=== PATIENT | female | born 1960 | race Caucasian/White ===

== ENCOUNTER → 2016-10-01 | Outpatient (CLI) | payer BC, OTHER ==
[~2016-10-01] MED LIST: ACET325T96 PO; IBUP-1459 PO
--- NOTE | 2016-10-02 14:41 | MAMMOGRAPHY REPORT ---
BILATERAL DIGITAL SCREENING MAMMOGRAM TOMOSYNTHESIS WITH CAD: 10/01/2016 CLINICAL HISTORY: Routine screening. Patient has no complaints. TECHNIQUE: Breast tomosynthesis in addition to standard 2D mammography was performed. Current study was also evaluated with a Computer Aided Detection (CAD) system. COMPARISON: Comparison is made to exams dated: 09/29/2015 mammogram, 08/26/2014 mammogram, 01/20/2013 m ammogram, 02/23/2010 mammogram - [facility], 07/31/2006, and 07/31/2006. BREAST COMPOSITION: There are scattered areas of fibroglandular density in both breasts. FINDINGS: There are a few stable benign-appearing calcifications within the right breast. No suspic ious mass, architectural distortion or cluster of microcalcifications is seen. IMPRESSION: ACR BI-RADS CATEGORY 1: NEGATIVE There is no mammographic evidence of malignancy. A 1 year screening mammogram is recommended. The p atient will receive written notification of the results. Approximately 10% of breast cancers are not detected with mammography. A negative mammographic repor t should not delay biopsy if a clinically suggestive mass is present. Mony King M.D. ay/:10/01/2016 22:25:31 Irrigation Flume Layer: Maral BOTELLO(Otoneil)(M), [facility] letter sent: Normal 1/2 BI-RADS Code: ACR BI-RADS Category 1: Negative
== END | disposition home or self-care (01) ==
LOC: C.MAMM 14:01
PROVIDERS: ATTEND Obstetrics & Gynecology
DX: Z12.31 Encounter for screening mammogram for malignant neoplasm of breast (principal)

== ENCOUNTER → 2017-10-17 | Outpatient (CLI) | payer OTHER ==
[~2017-10-17] MED LIST changes: +ACET-1693 PO; -ACET325T96 PO
--- NOTE | 2017-10-20 08:09 | MAMMOGRAPHY REPORT ---
BILATERAL DIGITAL SCREENING MAMMOGRAM TOMOSYNTHESIS WITH CAD: 10/17/2017 CLINICAL HISTORY: Routine screening. Patient has no complaints. TECHNIQUE: Breast tomosynthesis in addition to standard 2D mammography was performed. Current study was also evaluated with a Computer Aided Detection (CAD) system. COMPARISON: Comparison is made to exams dated: 10/01/2016 mammogram, 09/29/2015 mammogram, 08/26/2014 adebayo mogram, 01/20/2013 mammogram, 02/23/2010 mammogram - [facility], and 07/31/2006. BREAST COMPOSITION: There are scattered areas of fibroglandular density in both breasts. FINDINGS: No suspicious masses, calcifications, or areas of architectural distortion are noted in ei ther breast. There has been no significant interval change compared to prior exams. Benign-appearing right breast calcifications are not significantly changed. IMPRESSION: ACR BI-RADS CATEGORY 2: BENIGN There is no mammographic evidence of malignancy. A 1 year screening mammogram is recommended. The pa tient will receive written notification of the results. Approximately 10% of breast cancers are not detected with mammography. A negative mammographic report should not delay biopsy if a clinically suggestive mass is present. Susana Mae M.D. /:10/17/2017 15:10:46 Dermatologist: Arelis BOTELLO(Otoniel)(M), [facility] letter sent: Normal 1/2 BI-RADS Code: ACR BI-RADS Category 2: Benign
== END | disposition home or self-care (01) ==
LOC: C.MAMM 13:33
PROVIDERS: ATTEND Obstetrics & Gynecology
DX: Z12.31 Encounter for screening mammogram for malignant neoplasm of breast (principal)

== ENCOUNTER 2025-03-03 14:14 | Inpatient (IN) ==
--- NOTE | 2025-03-03 14:22 | Emergency Department Note ---
Impression & Plan Fever, Hematuria, Tachycardia, High serum lactate, Elevated procalcitonin, Epigastric abdominal pain, Cough ED Provider Note CHIEF COMPLAINT: Cough, body aches, fatigue, fever, shortness of breath HISTORY OF PRESENTING ILLNESS: This 65-year-old female patient presents emergency department for evaluation of illness symptoms since 02/18/2025. The patient states that she has had a fever 101.9 F, cough, shortness of breath, body aches, headache, and fatigue since 02/18/2025. She states that she had multiple negative COVID and flu tests. She states that she had blood in her urine when she was seen at urgent care, but no evidence of UTI. The fever resolved for 3 days, but then returned today up to 101.5 F again. She took Tylenol at 7:00 am this morning to help with the fever. Denies chest pain. She has had the cough for the past month and initially her PCP thought it was GERD. However, it did not resolve with Pepcid. The SOB is worse with taking a deep breath. She also coughs every time she takes a deep breath. Denies nausea or vomiting. States that her stomach feels like it's on fire after eating. She denies any rashes. No known tick bites. The fever started while in [place] to help her father move from one group home to another. REVIEW OF SYSTEMS: See HPI for pertinent positives and pertinent negatives. ALLERGIES: PCN, Sulfa MEDICATIONS: See below PAST MEDICAL HISTORY: See below PHYSICAL EXAM: Vital Signs: Vitals are noted on the nurse's note and reviewed by myself. GENERAL: The patient is mildly diaphoretic and ill-appearing, but non toxic in appearance and in no acute distress. SKIN: Capillary reflex less than 2 seconds. No suspicious rashes or lesions. HEAD: Normocephalic, atraumatic. EARS: Bilateral external auditory canals clear without tragus tenderness. Bilateral tympanic membranes pearly small without erythema or effusion. No mastoid tenderness bilaterally. EYES: Pupils equal round and reactive to light and accommodation. Conjunctivae without injection, sclerae without icterus. Extraocular movements intact. NOSE: Patent, turbinates inflamed with no discharge. No sinus tenderness. MOUTH: Mucous membranes moist. Airway patent, uvula midline. Pharynx is not erythematous and not edematous with no exudate. Pharynx has no postnasal drip. No evidence for peritonsillar abscess. NECK: Supple without nuchal rigidity. No meningeal signs. No lymphadenopathy. HEART: Regular rate and rhythm without murmurs gallops or rubs. LUNGS: Lungs sounded tight with decreased air movement bilaterally. Reflux cough after every inspiration. No accessory muscle use or retractions. ABDOMEN: Positive bowel sounds x 4. Normal tympanic percussion. Soft, mild tenderness to palpation in the epigastric area. No masses or hepatosplenomegaly. No guarding, rigidity, or rebound tenderness. No CVA tenderness. No focal RLQ or LLQ tenderness. NEURO: Patient was alert and oriented. DIFFERENTIAL DIAGNOSIS: Differential diagnosis includes Influenza, RSV, COVID, viral syndrome, otitis media, otitis externa, pharyngitis, strep throat, pneumonia, meningitis, urinary tract infection, cellulitis, abscess, sepsis, bacteremia, Lyme disease, anaplasmosis, babesiosis, angina, CA, pericarditis, myocarditis, aortic dissection, pleurisy, pneumothorax, PE, pneumonia, pneumomediastinum, esophagitis, esophageal spasm, GERD, perforated esophagus, perforated duodenal/gastric ulcer, pancreatitis, cholecystitis, costochondritis, musculoskeletal, bronchitis, URI, hepatitis, pancreatitis, cholecystitis, cholelithiasis, appendicitis, kidney stone, pyelonephritis, UTI, gastritis, gastroenteritis, mesenteric adenitis, obstruction, constipation, hernia, abdominal abscess, perforation, diverticulitis, IBD, ischemic colitis, abdominal aortic aneurysm, , ectopic , ovarian cyst, ovarian torsion, acute salpingitis, or others. ED COURSE AND MEDICAL DECISION MAKING: MEDICATIONS GIVEN: A total of 2.5 L normal saline solution bolus. Tylenol 1000 mg IV. Pepcid 20 mg IV. DuoNeb treatment. Rocephin 2 g IV. Doxycycline 100 mg p.o. MONITOR: Continuous cardiac monitor technician: Order was placed for continuous cardiac monitor technician. Patient was placed on the cardiac monitor technician and continuous pulse ox. Patient was noted to be in sinus tachycardia at an initial rate of 138 bpm per my interpretation. EKG: EKG was interpreted by myself as sinus tachycardia at 123 bpm with no acute ST or T wave changes. INTERPRETATION OF LABS: I interpreted the labs with full lab results as below in the lab section of this note. Laboratory results pertinent to the emergent complaint are discussed in the MDM section below. The patient was advised to follow up with their PCP and/or specialist(s) for further outpatient monitoring and management of any abnormal results. INTERPRETATION OF IMAGING: Imaging studies were interpreted by myself and read by radiology as per the imaging section of this note. The patient was advised to follow up with their PCP and/or specialist(s) for further outpatient management of any non-emergent abnormal findings. CT scan of the head without contrast was negative for acute intracranial abnormality. CTA of the chest with IV contrast showed no evidence of PE, pneumonia, pneumothorax, or hemothorax. There is bilateral lung base atelectasis and mild emphysema. CT scan of the abdomen pelvis with IV contrast showed a suspected mild small bowel wall thickening which may be due to infectious enteritis or inflammatory bowel disease. Left ovarian cyst which is likely a benign functional cyst. CONSULTATIONS: On-call hospitalist MDM SUMMARY: I examined the patient. The patient has had a fever since 02/18/2025. She had 3 days where she was afebrile, but the fever returned again today. The patient has also had a cough for the past month that has not become reflexive. She is also having some upper epigastric abdominal pain. She has had multiple negative COVID and influenza tests as an outpatient. The patient is febrile and tachycardic on exam. She is mildly diaphoretic and ill-appearing, but nontoxic. An IV lock was placed and labs were drawn. The patient was given a total of 2.5 L normal saline solution bolus based on her actual body weight sepsis fluid calculation of 2.352 L. Blood cultures were obtained. The patient was given Rocephin 2 g IV. She was also given doxycycline 100 mg p.o. for possible atypical or tickborne cause of the fever. The patient was given Tylenol 1000 mg IV with resolution of her fever. She was given Pepcid 20 mg IV with some improvement of her epigastric abdominal pain and reflux. She was given a DuoNeb treatment with some improvement of her breathing and cough. White blood cell count normal at 6.17. Hemoglobin normal at 12.4. Platelet count normal at 387. Coags normal. Sodium slightly low at 134, glucose elevated at 131, and alk phos 135. CMP otherwise normal. Lipase normal. High- sensitivity troponin normal. The patient's initial lactate was elevated at 2.3 and improved to 1.7 after the IV fluids. Procalcitonin elevated at 0.51. Urinalysis with trace blood, but no evidence for UTI. Respiratory BioFire negative. Lyme disease screen negative. Anaplasma and Babesia smear negative with DNA PCR still pending. CT scan of the head without contrast was negative for acute intracranial abnormality. CTA of the chest with IV contrast showed no evidence of PE, pneumonia, pneumothorax, or hemothorax. There is bilateral lung base atelectasis and mild emphysema. CT scan of the abdomen pelvis with IV contrast showed a suspected mild small bowel wall thickening which may be due to infectious enteritis or inflammatory bowel disease. Left ovarian cyst which is likely a benign functional cyst. Unfortunately, the source of the patient's fever is still unknown at this time. Still waiting on Anaplasma and Babesia DNA PCR. The patient will be treated with doxycycline in addition to the IV Rocephin for possible tickborne illness as a cause of her symptoms. The patient's heart rate improved after the IV fluids, but she remained tachycardic. I had a meaningful discussion about this patient with Dr. Guthrie who agrees with my assessment and the treatment plan. The patient will be admitted for further evaluation and treatment of her symptoms. I spoke with the on-call hospitalist who agreed to admit the patient. Please refer to their dictation for further details. The patient's care was transferred in stable condition. DIAGNOSIS: Fever Tachycardia Elevated lactate and procalcitonin Epigastric abdominal pain Hematuria Cough Attending Attestation: Zuhair Guthrie MD I have reviewed the advanced practitioner's documentation and agree with the plan of care. Patient with tachycardia fevers and elevated procalcitonin. No clear source at this time. Will cover empirically with antibiotics and bring in for further observation. I accept the responsibility for the associated risk of managing the patient. I performed a substantive portion of the visit including involvement in all aspects of medical decision making. Past Med/Surg History Problem List Cough (Acute) Epigastric abdominal pain (Acute) Elevated procalcitonin (Acute) High serum lactate (Acute) Tachycardia (Acute) Hematuria (Acute) Hematuria Fever (Acute) Arthralgia Scattered fibroglandular tissue density of both breasts on mammography Plantar fasciitis Toe fracture Strain of latissimus dorsi muscle Foot pain At increased risk for malignant neoplasm of breast TYRLISA FUNEZK IS 20.9 Family history of malignant neoplasm of breast SISTER Plantar fasciitis of right foot Postmenopausal Factor V Leiden mutation H/O section Medical History Dense breast tissue FIBROGLANDULAR DENSITY History of hiatal hernia History of basal cell carcinoma Surgical History H/O knee surgery History of hysteroscopy ablation Status post left foot surgery Family History Mother Endometriosis Sister Endometriosis Breast cancer BRCA NEGATIVE Grandmother (Maternal) Hypertension Grandfather (Maternal) Bladder cancer Grandmother (Paternal) Pancreatic cancer Brother Colorectal cancer Aunt Pancreatic cancer PATERNAL Family/Other Colorectal cancer 2 paternal 1st degree cousins Denies family history of Ovarian cancer Prostate cancer Myocardial infarction Social History Smoking Status: Never smoker Do You Dip or Chew Tobacco: No; Hx Alcohol Use: No Hx Substance Use: No Preferred Language: Citizen Of [place] Communication Ability: Effective Pharmaceutical Physician Required: No Beliefs That Will Affect Care: None marital status: Current Living Situation: Alone Current Living Situation Comment: Pt states her son is temporarily living with her current occupational status: employed Feels Safe at Home: Yes Assistive Devices: Glasses Allergies Allergies Allergy/AdvReac Type Severity Reaction Status Date / Time Penicillins Allergy Severe Anaphylaxis Verified 03/03/25 18:50 Sulfa (Sulfonamide Allergy Severe Anaphylaxis Verified 03/03/25 18:50 Antibiotics) Home Meds Home Medications Medication Instructions Recorded Confirmed desmopressin 0.1 mg tablet 0.1 mg PO HS 07/31/22 03/03/25 omeprazole 20 mg capsule,delayed 20 mg PO DAILY 03/31/24 03/03/25 release trazodone 50 mg tablet 50 mg PO QPM 03/31/24 03/03/25 Results & Data (ED) Vital Signs Vital Signs - 24 hr 03/03/25 14:15 03/03/25 14:44 03/03/25 14:44 Temperature 37.7 C H 37.2 C Temperature Source Oral Oral Pulse Rate 138 H 120 H Pulse Rate [Apical] 120 H Respiratory Rate 20 20 20 Respiratory Effort / Characteristics Non-Labored Spontaneous Respiratory Depth Normal Blood Pressure 111/73 Blood Pressure [Right Arm] 114/75 Blood Pressure Mean 85 Blood Pressure Mean [Right Arm] 88 Blood Pressure Position [Right Arm] Semi-fowlers Pulse Oximetry 99 97 97 Oxygen Delivery Method Room Air Room Air Room Air Oxygen Flow Rate Sepsis Recent Fever Within 48 Hours No Sepsis New/Unexplained Change in Mental Status N/A Sepsis Action Taken by Nursing No Action Required 03/03/25 16:00 03/03/25 16:48 Temperature Temperature Source Pulse Rate 117 H Pulse Rate [Apical] 111 H Respiratory Rate 20 Respiratory Effort / Characteristics Respiratory Depth Blood Pressure Blood Pressure [Right Arm] 111/81 Blood Pressure Mean Blood Pressure Mean [Right Arm] 91 Blood Pressure Position [Right Arm] Semi-fowlers Pulse Oximetry 100 Oxygen Delivery Method Nebulizer Oxygen Flow Rate 7 Sepsis Recent Fever Within 48 Hours Sepsis New/Unexplained Change in Mental Status Sepsis Action Taken by Nursing Laboratory Data 03/04/25 06:48 03/04/25 06:48 Lab Results 03/03/25 03/03/25 03/03/25 Range/Units 14:45 15:00 15:31 WBC 6.17 (4.8-10.8) K/ul RBC 4.21 (4.20-5.40) M/uL Hgb 12.4 (12.0-16.0) g/dl Hct 37.5 (37.0-47.0) % MCV 89.1 (80.0-100.0) fL MCH 29.5 (25.0-34.0) pg MCHC 33.1 (32.0-36.0) g/dL RDW Std Deviation 45.5 (36.4-46.3) fL RDW Coeff of Kevin 14.1 (11.5-14.5) % Plt Count 387 (130-400) K/uL MPV 8.9 L (9.4-12.4) fL Immature Gran % (Auto) 0.5 % Neut % (Auto) 71.6 % Lymph % (Auto) 18.3 % [place] % (Auto) 9.1 % Eos % (Auto) 0.0 % Baso % (Auto) 0.5 % Neut # (Auto) 4.42 (1.40-6.50) K/uL Lymph # (Auto) 1.13 L (1.20-3.40) K/uL [place] # (Auto) 0.56 (0.11-0.59) K/uL Eos # (Auto) 0.00 (0.00-0.50) K/uL Baso # (Auto) 0.03 (0.00-0.20) K/uL Immature Gran # (Auto) 0.03 (0.01-0.20) K/uL PT Cancelled 10.3 INR Cancelled 0.9 APTT Cancelled 24 PTT Ratio Cancelled 0.9 Sodium 134 L (136-145) mmol/L Potassium 3.8 (3.5-5.1) mmol/L Chloride 104 (98-107) mmol/L Carbon Dioxide 22 (21-32) mmol/L Anion Gap 8 (3-11) BUN 11 (6-23) mg/dl Creatinine 0.81 (0.6-1.2) mg/dl Est Cr Clr Drug Dosing 72.4 ml/min eGFR 80.51 BUN/Creatinine Ratio 13.6 (10-20) Glucose 131 H (70-99(Fasting)) mg/dl Lactate 2.3 H* (0.4-2.0) mmol/L Calcium 9.3 (8.6-10.3) mg/dl Magnesium 2.1 (1.7-2.4) mg/dl Total Bilirubin 0.6 (0.2-1.0) mg/dl AST 25 (13-39) U/L ALT 44 (7-52) U/L Alkaline Phosphatase 135 H (34-104) U/L Troponin I High Sens 2.3 (0-14) pg/ml C-Reactive Protein 2.31 H (0-0.5) mg/dl Total Protein 7.3 (6.0-8.3) gm/dl Albumin 4.0 (3.4-5.0) gm/dl Globulin 3.3 (2.5-4.0) gm/dl Albumin/Globulin Ratio 1.2 (0.9-2) Lipase 44 (11-82) U/L Procalcitonin 0.51 H (0-0.5) ng/ml Urine Color Yellow Urine Appearance Clear (Clear) Urine pH 7.0 (4.5-7.5) Ur Specific Yoder 1.010 (1.000-1.030) Urine Protein Negative (Negative) Urine Glucose (UA) Negative (Negative) Urine Ketones Negative (Negative) Urine Blood Trace H (Negative) Urine Nitrite Negative (Negative) Urine Bilirubin Negative (Negative) Urine Urobilinogen Negative (Negative) Ur Leukocyte Esterase Negative (Negative) Urine WBC (Auto) 0-5 (0-5) /hpf Urine RBC (Auto) 0-2 (0-2) /hpf U Hyaline Cast (Auto) 0-2 (0-2) /lpf U Epithel Cells (Auto) 0-2 (0-2) /hpf Urine Bacteria (Auto) None Seen (None Seen) Urine Comment Adenovirus (PCR) Not Detected (NotDetected) Anaplasma Smear See Comment Babesia Smear See Comment B. pertussis DNA (PCR) Not Detected (NotDetected) B.parapertussis DNA PCR Not Detected (NotDetected) Lyme Disease Screen Negative (Negative) C. pneumoniae DNA (PCR) Not Detected (NotDetected) Coronavirus OC43 (PCR) Not Detected (NotDetected) Coronavirus HKU1 (PCR) Not Detected (NotDetected) Coronavirus 229E (PCR) Not Detected (NotDetected) SARS-CoV-2 (PCR) Not Detected (NotDetected) Coronavirus NL63 (PCR) Not Detected (NotDetected) Human Metapneumovir PCR Not Detected (NotDetected) Influenza Type A (PCR) Not Detected (NotDetected) Influenza Type B (PCR) Not Detected (NotDetected) M. pneumoniae (PCR) Not Detected (NotDetected) Parainfluenza 1 (PCR) Not Detected (NotDetected) Parainfluenza 2 (PCR) Not Detected (NotDetected) Parainfluenza 3 (PCR) Not Detected (NotDetected) Parainfluenza 4 (PCR) Not Detected (NotDetected) RSV (PCR) Not Detected (NotDetected) Entero/Rhino (PCR) Not Detected (NotDetected) 03/03/25 Range/Units 16:35 WBC (4.8-10.8) K/ul RBC (4.20-5.40) M/uL Hgb (12.0-16.0) g/dl Hct (37.0-47.0) % MCV (80.0-100.0) fL MCH (25.0-34.0) pg MCHC (32.0-36.0) g/dL RDW Std Deviation (36.4-46.3) fL RDW Coeff of Kevin (11.5-14.5) % Plt Count (130-400) K/uL MPV (9.4-12.4) fL Immature Gran % (Auto) % Neut % (Auto) % Lymph % (Auto) % [place] % (Auto) % Eos % (Auto) % Baso % (Auto) % Neut # (Auto) (1.40-6.50) K/uL Lymph # (Auto) (1.20-3.40) K/uL [place] # (Auto) (0.11-0.59) K/uL Eos # (Auto) (0.00-0.50) K/uL Baso # (Auto) (0.00-0.20) K/uL Immature Gran # (Auto) (0.01-0.20) K/uL PT INR APTT PTT Ratio Sodium (136-145) mmol/L Potassium (3.5-5.1) mmol/L Chloride (98-107) mmol/L Carbon Dioxide (21-32) mmol/L Anion Gap (3-11) BUN (6-23) mg/dl Creatinine (0.6-1.2) mg/dl Est Cr Clr Drug Dosing ml/min eGFR BUN/Creatinine Ratio (10-20) Glucose (70-99(Fasting)) mg/dl Lactate 1.7 (0.4-2.0) mmol/L Calcium (8.6-10.3) mg/dl Magnesium (1.7-2.4) mg/dl Total Bilirubin (0.2-1.0) mg/dl AST (13-39) U/L ALT (7-52) U/L Alkaline Phosphatase (34-104) U/L Troponin I High Sens (0-14) pg/ml C-Reactive Protein (0-0.5) mg/dl Total Protein (6.0-8.3) gm/dl Albumin (3.4-5.0) gm/dl Globulin (2.5-4.0) gm/dl Albumin/Globulin Ratio (0.9-2) Lipase (11-82) U/L Procalcitonin (0-0.5) ng/ml Urine Color Urine Appearance (Clear) Urine pH (4.5-7.5) Ur Specific [place] (1.000-1.030) Urine Protein (Negative) Urine Glucose (UA) (Negative) Urine Ketones (Negative) Urine Blood (Negative) Urine Nitrite (Negative) Urine Bilirubin (Negative) Urine Urobilinogen (Negative) Ur Leukocyte Esterase (Negative) Urine WBC (Auto) (0-5) /hpf Urine RBC (Auto) (0-2) /hpf U Hyaline Cast (Auto) (0-2) /lpf U Epithel Cells (Auto) (0-2) /hpf Urine Bacteria (Auto) (None Seen) Urine Comment Adenovirus (PCR) (NotDetected) Anaplasma Smear Babesia Smear B. pertussis DNA (PCR) (NotDetected) B.parapertussis DNA PCR (NotDetected) Lyme Disease Screen (Negative) C. pneumoniae DNA (PCR) (NotDetected) Coronavirus OC43 (PCR) (NotDetected) Coronavirus HKU1 (PCR) (NotDetected) Coronavirus 229E (PCR) (NotDetected) SARS-CoV-2 (PCR) (NotDetected) Coronavirus NL63 (PCR) (NotDetected) Human Metapneumovir PCR (NotDetected) Influenza Type A (PCR) (NotDetected) Influenza Type B (PCR) (NotDetected) M. pneumoniae (PCR) (NotDetected) Parainfluenza 1 (PCR) (NotDetected) Parainfluenza 2 (PCR) (NotDetected) Parainfluenza 3 (PCR) (NotDetected) Parainfluenza 4 (PCR) (NotDetected) RSV (PCR) (NotDetected) Entero/Rhino (PCR) (NotDetected) Administered Medications Acetaminophen (Acetaminophen 325 Mg Tab) 650 mg PO Q4H PRN PRN Reason: pain/fever Stop: 04/02/25 21:59 Last Admin: 03/04/25 07:46 Dose: 650 mg Documented By: EA Desmopressin Acetate (Desmopressin Acetate 0.1 Mg Tab) 0.1 mg PO HS VIKTOIRA Stop: 04/02/25 20:59 Last Admin: 03/03/25 23:46 Dose: 0.1 mg Documented By: prema Enoxaparin Sodium (Enoxaparin Inj 40 Mg/0.4 Ml Syr) 40 mg SQ Q24H VIKTORIA Stop: 04/02/25 20:59 Last Admin: 03/03/25 23:46 Dose: 40 mg Documented By: prema Doxycycline Hyclate 100 mg/ (Dextrose) 100 mls @ 50 mls/hr IV Q12H VIKTORIA Stop: 03/18/25 05:59 Last Admin: 03/04/25 06:37 Dose: 50 mls/hr Documented By: prema Lactated Ringer's (Lr) 1,000 mls @ 80 mls/hr IV .[id number] VIKTORIA Stop: 03/06/25 20:35 Last Admin: 03/03/25 22:47 Dose: 80 mls/hr Documented By: prema Pantoprazole Sodium (Pantoprazole 40 Mg Tab) 40 mg PO DAILY VIKTORIA Stop: 04/03/25 08:59 Last Admin: 03/04/25 07:46 Dose: 40 mg Documented By: MARLA Trazodone HCl (Trazodone Hcl 50 Mg Tab) 50 mg PO QPM VIKTORIA Stop: 04/02/25 20:59 Last Admin: 03/03/25 23:46 Dose: 50 mg Documented By: prema Discontinued Medications Albuterol (Albut/Ipratrop 3mg/0.5mg Neb 3 Ml Vial) 3 ml NEB NOW STA; Protocol Stop: 03/03/25 14:55 Last Admin: 03/03/25 15:46 Dose: 3 ml Documented By: jose Doxycycline Hyclate (Doxycycline Hyclate 100 Mg Cap) 100 mg PO NOW STA Stop: 03/03/25 17:12 Last Admin: 03/03/25 17:47 Dose: 100 mg Documented By: jose Sodium Chloride (Nss) 1,000 mls @ 999 mls/hr IV .Q1H1M ONE Stop: 03/03/25 15:43 Last Infusion: 03/03/25 17:21 Dose: Infused Documented By: jose Admin: 03/03/25 15:34 Dose: 999 mls/hr Documented By: jose Sodium Chloride (Nss) 1,000 mls @ 999 mls/hr IV .Q1H1M ONE Stop: 03/03/25 15:43 Last Infusion: 03/03/25 18:33 Dose: Infused Documented By: Admin: 03/03/25 16:42 Dose: 999 mls/hr Documented By: jose Acetaminophen (Ofirmev) 1,000 mg in 100 mls @ 400 mls/hr IV NOW STA Stop: 03/03/25 15:03 Last Infusion: 03/03/25 16:12 Dose: Infused Documented By: amg Admin: 03/03/25 15:34 Dose: 400 mls/hr Documented By: jose Famotidine (Pepcid 20mg Iv Push) 20 mg in 5 mls @ 2.5 mls/min IV NOW STA Stop: 03/03/25 14:50 Last Admin: 03/03/25 15:40 Dose: 2.5 mls/min Documented By: jose Ceftriaxone Sodium (Rocephin) 2,000 mg in 50 mls @ 100 mls/hr IV NOW STA Stop: 03/03/25 15:23 Last Infusion: 03/03/25 17:21 Dose: Infused Documented By: jose Admin: 03/03/25 16:13 Dose: 100 mls/hr Documented By: jose Sodium Chloride (Nss) 500 mls @ 999 mls/hr IV .Q31M ONE Stop: 03/03/25 15:25 Last Infusion: 03/03/25 18:34 Dose: Infused Documented By: F Admin: 03/03/25 17:35 Dose: 999 mls/hr Documented By: jose Ioversol (Optiray 320 125ml) 118 ml IV ONCE ONE Stop: 03/03/25 16:34 Last Admin: 03/03/25 16:33 Dose: 118 ml Documented By: [facility] Imaging Data Radiologist's Impression: Abdomen/Pelvis CT 03/03/25 14:43 Technique: Axial computed tomography images were obtained of the abdomen and pelvis after the administration of intravenous contrast. Comparison is made to the prior CT dated 03/31/2024 Findings: The liver is overall of normal size, attenuation, and contour with no sign of cirrhosis or significant fatty infiltration. No liver mass lesion is seen. The portal vein is patent. The gallbladder appears unremarkable. No bile duct dilatation is noted. The spleen is of normal size. No focal splenic lesion is evident. The pancreas appears normal with no sign of acute or chronic pancreatitis and no mass lesion noted. The pancreatic duct is of normal caliber. The adrenal glands appear unremarkable. No definite renal or proximal ureteral calculi are seen on this contrast-enhanced study. There is no hydronephrosis or perinephric stranding. No renal mass lesion is identified. The aorta is of normal caliber. No abdominal adenopathy is seen. The stomach appears normal. There is no sign of small bowel obstruction. There is suspected mild small bowel wall thickening. The colon appears unremarkable. The appendix appears normal also. No free intraperitoneal fluid or air is identified. No distal ureteral or bladder calculi are seen. No bladder mass lesion is evident. The iliac arteries are of normal caliber. No pelvic adenopathy is noted. There is a 2.2 cm left ovarian cyst The lungs bases appear clear. No fracture is identified. No focal osseous lesion is seen Impression: 1. Suspected mild small bowel wall thickening, which may be due to infectious enteritis or inflammatory bowel disease 2. Left ovarian cyst, likely a benign functional cyst Electronically signed by Per Mireles 03-03-2025 5:05 PM Chest CTA 03/03/25 14:43 Clinical history: Headache and fever Technique: Axial computed tomography images were obtained of the chest after the administration of intravenous contrast according to the CT angiogram protocol Comparison is made to the prior CT dated 11/02/2020 Findings: There is no definite sign of pulmonary embolism. There is bilateral lower lobe and right middle lobe atelectasis. There is a small calcified granuloma in the right upper lobe. There is mild emphysema. There is no pleural effusion or pneumothorax. There is no sign of pulmonary fibrosis or other diffuse interstitial process. No endobronchial lesion is seen There is no mediastinal, hilar, or axillary adenopathy. The thoracic aorta appears unremarkable with no sign of aneurysm or dissection. There is no pericardial effusion The visualized upper abdomen appears unremarkable. No fracture is seen. No focal osseous lesion is evident Impression: 1. No definite sign of pulmonary embolism 2. Bilateral lung base atelectasis 3. Mild emphysema Electronically signed by Per Mireles 03-03-2025 5:[address] 03/03/25 14:43 Clinical History: Headache and fever. Technique: Axial computed tomography images were obtained of the brain from the vertex to the skull base without intravenous contrast. Findings: There is no sign of intracranial hemorrhage. There is normal small-white matter differentiation with no sign of acute or old infarction. No midline shift or other form of herniation is identified. There is no hydrocephalus. No obvious mass lesion is seen on this noncontrast examination. The visualized portions of the orbits and paranasal sinuses appear unremarkable. The mastoid air cells appear clear Impression: Unremarkable noncontrast CT of the brain Electronically signed by Per Mireles 03-03-2025 4:57 PM Discharge Plan Visit Data Chief Complaint: Flu Like Symptoms Stated Complaint: FEVER 2 WKS/COUGH/ACHES/DIZZY/FATIGUE ED Provider: Jesus Guthrie ED Midlevel Provider: Ivon Perez Discharge Problem: Fever, Hematuria, Tachycardia, High serum lactate, Elevated procalcitonin, Epigastric abdominal pain, Cough Patient Disposition: Admitted As Inpatient Condition: Fair Discharge Instructions Interventions: ED Discharge Assessment Last Done: 03/03/25 20:37 Discharge Problem: Fever Qualifiers: Fever type: unspecified Qualified Code(s): R50.9 - Fever, unspecified Hematuria Qualifiers: Hematuria type: unspecified type Qualified Code(s): R31.9 - Hematuria, unspecified Cough Qualifiers: Cough type: acute Qualified Code(s): R05.1 - Acute cough
[2025-03-03 15:10] LABS: Hematocrit (blood only) 37.5 % (37.0-47.0); Hemoglobin 12.4 g/dl (12.0-16.0); Immature Granulocytes # (auto) 0.03 K/uL (0.01-0.20); Immature Granulocytes % (auto) 0.5 %; Mean Corpuscular Hemoglobin 29.5 pg (25.0-34.0); Mean Corpuscular Volume 89.1 fL (80.0-100.0); Platelet Count 387 K/uL (130-400); RDW Standard Deviation 45.5 fL (36.4-46.3); Red Blood Count 4.21 M/uL (4.20-5.40); White Blood Count 6.17 K/ul (4.8-10.8)
[2025-03-03 15:27] LABS: Alanine Aminotransferase 44.0 U/L (7-52); Albumin Globulin Ratio 1.2 (0.9-2); Alkaline Phosphatase 135.0 U/L (34-104); Anion Gap 8.0 (3-11); Bilirubin,Total 0.6 mg/dl (0.2-1.0); Blood Urea Nitrogen 11.0 mg/dl (6-23); Calcium 9.3 mg/dl (8.6-10.3); Carbon Dioxide 22.0 mmol/L (21-32); Chloride 104.0 mmol/L (98-107); Creatinine Clr Calc Pharmacy 72.4 ml/min; Globulin 3.3 gm/dl (2.5-4.0); Glucose 131.0 mg/dl (70-99(Fasting)); Lipase 44.0 U/L (11-82); Magnesium 2.1 mg/dl (1.7-2.4); Potassium 3.8 mmol/L (3.5-5.1); Sodium 134.0 mmol/L (136-145); Total Protein 7.3 gm/dl (6.0-8.3)
[2025-03-03 15:30] LABS: Appearance Urine Clear (Clear); Bacteria Urine Automated None Seen (None Seen); Cast Urine Automated 0-2 /lpf (0-2); Epithelial Cell Urine Auto 0-2 /hpf (0-2); Glucose Urine UA Negative (Negative); RBC Urine Automated 0-2 /hpf (0-2); WBC Urine Automated 0-5 /hpf (0-5)
[2025-03-03] MEDS: SODIUM CHLORIDE 0.9% 1,000 ML IV ONE ×2 (15:34→16:42)
[2025-03-03] MEDS: ACETAMINOPHEN 1,000 MG/100 ML VIAL IV STA (15:34)
[2025-03-03] MEDS: FAMOTIDINE 20MG IV PUSH 20 MG/5 ML SYR IV STA (15:40)
[2025-03-03] MEDS: ALBUT/IPRATROP 3MG/0.5MG NEB 3 ML VIAL NEB STA (15:46)
[2025-03-03 16:09] LABS: Chlamydia pneumoniae PCR Not Detected (NotDetected); Coronavirus 229E PCR Not Detected (NotDetected); Coronavirus CoV-2 (COVID19)PCR Not Detected (NotDetected); Coronavirus HKU1 PCR Not Detected (NotDetected); Coronavirus NL63 PCR Not Detected (NotDetected); Coronavirus OC43PCR Not Detected (NotDetected); Human Metapneumovirus PCR Not Detected (NotDetected); Parainfluenza Virus 1 PCR Not Detected (NotDetected); Parainfluenza Virus 2 PCR Not Detected (NotDetected); Parainfluenza Virus 3 PCR Not Detected (NotDetected); Parainfluenza Virus 4 PCR Not Detected (NotDetected); Respiratory Syncytial VirusPCR Not Detected (NotDetected); Rhinovirus/Enterovirus PCR Not Detected (NotDetected)
[2025-03-03] MEDS: cefTRIAXone SODIUM 2,000 MG/50 ML BAG IV STA (16:13)
[2025-03-03 16:32] LABS: INR 0.9 (0.9-1.1); Partial Thromboplastin Time 24 Seconds (21-31); Prothrombin Time 10.3 Seconds (9.0-12.0)
[2025-03-03] MEDS: OPTIRAY 320 125ml IV ONE (16:33)
--- NOTE | 2025-03-03 16:57 | CT Scan Report ---
Clinical History: Headache and fever. Technique: Axial computed tomography images were obtained of the brain from the vertex to the skull base without intravenous contrast. Findings: There is no sign of intracranial hemorrhage. There is normal small-white matter differentiation with no sign of acute or old infarction. No midline shift or other form of herniation is identified. There is no hydrocephalus. No obvious mass lesion is seen on this noncontrast examination. The visualized portions of the orbits and paranasal sinuses appear unremarkable. The mastoid air cells appear clear Impression: Unremarkable noncontrast CT of the brain Electronically signed by Per Mireles 03-03-2025 4:57 PM
--- NOTE | 2025-03-03 17:00 | CT Scan Report ---
Clinical history: Headache and fever Technique: Axial computed tomography images were obtained of the chest after the administration of intravenous contrast according to the CT angiogram protocol Comparison is made to the prior CT dated 11/02/2020 Findings: There is no definite sign of pulmonary embolism. There is bilateral lower lobe and right middle lobe atelectasis. There is a small calcified granuloma in the right upper lobe. There is mild emphysema. There is no pleural effusion or pneumothorax. There is no sign of pulmonary fibrosis or other diffuse interstitial process. No endobronchial lesion is seen There is no mediastinal, hilar, or axillary adenopathy. The thoracic aorta appears unremarkable with no sign of aneurysm or dissection. There is no pericardial effusion The visualized upper abdomen appears unremarkable. No fracture is seen. No focal osseous lesion is evident Impression: 1. No definite sign of pulmonary embolism 2. Bilateral lung base atelectasis 3. Mild emphysema Electronically signed by Per Mireles 03-03-2025 5:00 PM
--- NOTE | 2025-03-03 17:06 | CT Scan Report ---
Technique: Axial computed tomography images were obtained of the abdomen and pelvis after the administration of intravenous contrast. Comparison is made to the prior CT dated 03/31/2024 Findings: The liver is overall of normal size, attenuation, and contour with no sign of cirrhosis or significant fatty infiltration. No liver mass lesion is seen. The portal vein is patent. The gallbladder appears unremarkable. No bile duct dilatation is noted. The spleen is of normal size. No focal splenic lesion is evident. The pancreas appears normal with no sign of acute or chronic pancreatitis and no mass lesion noted. The pancreatic duct is of normal caliber. The adrenal glands appear unremarkable. No definite renal or proximal ureteral calculi are seen on this contrast-enhanced study. There is no hydronephrosis or perinephric stranding. No renal mass lesion is identified. The aorta is of normal caliber. No abdominal adenopathy is seen. The stomach appears normal. There is no sign of small bowel obstruction. There is suspected mild small bowel wall thickening. The colon appears unremarkable. The appendix appears normal also. No free intraperitoneal fluid or air is identified. No distal ureteral or bladder calculi are seen. No bladder mass lesion is evident. The iliac arteries are of normal caliber. No pelvic adenopathy is noted. There is a 2.2 cm left ovarian cyst The lungs bases appear clear. No fracture is identified. No focal osseous lesion is seen Impression: 1. Suspected mild small bowel wall thickening, which may be due to infectious enteritis or inflammatory bowel disease 2. Left ovarian cyst, likely a benign functional cyst Electronically signed by Per Mireles 03-03-2025 5:05 PM
[2025-03-03] MEDS: SODIUM CHLORIDE 0.9% 500 ML IV ONE (17:35)
[2025-03-03] MEDS: DOXYCYCLINE HYCLATE 100 MG CAP PO STA (17:47)
--- NOTE | 2025-03-03 18:04 | History & Physical Report ---
Date of Service March 03, 2025 Assessment & Plan (1) Fever: (2) Hematuria: Plan #Fever as far as "common offenders" she does not show anything consistent with pneumonia, UTI, cellulitis, or C. difficile. Nor does she show anything consistent with viral infectionsespecially given the lack of focal symptoms and the now basically 2-week duration of symptoms. About the only "typical" bacterial infection that still seems to even be on the differential would to be bacteremiashe does not really have a reason to be bacteremic, although with the passing of her only a few months ago, and a "soft" way the stress/grieving could be a bit of an immune suppressing affectWill continue ceftriaxone at least until the blood cultures are negative. My biggest suspicion is tickbornewe live in a very endemic area, and the testing for tick specific illnesses is notoriously unreliable with a plethora of false negatives. I would suspect Lyme greater than Anaplasma greater than Babesia. Given that she has no anemia or evidence of hemolysis Babesia would definitely be the lowest on the differential, given that she does not have leukopenia/thrombocytopenia/transaminitis, Anaplasma does not fit the clinical picture it is just that it is far more common in this area. Lyme would be my biggest differentialwith that in mind, treat with doxycycline, follow for about 48 hoursif it is responding to the doxycycline, would anticipate improvement after that point. If she is still febrile after 48 hours, consider repeat tick testing, consider switching to BBC treatment, or consider revisiting workups for noninfectious causes of fever. #Hematuria here she has dipstick positive but 0-2 red cells, she notes whenever she was in [place] she had a urinalysis that was also positive for blood but not for infectionI suspect that is myoglobin from the body aches from the fever. #DVT prophylaxisLovenox continue home desmopressin, omeprazole, and trazodone. History of Present Illness Chief Complaint: fever Primary Care Provider: Maria Guadalupe HernandezMarilu Skyler patient is a very pleasant 65-year-old female who presents with fever. She notes her fever for started on February 18. Has basically been daily. She does not really have any other focal symptoms (except for a dry cough that is really mildly annoying at worst and she does not really correlate together with the fevers). She has no shortness of breath, she has no abdominal pain/diarrhea, she has no dysuria. She has no upper respiratory symptoms. She notes that she had a few days where she did not have a feverbut then whenever she thinks about it, she also wonders if she still did but because she was not feeling as bad for those few days, she did not take her temperature. Essentially she presents with about 2 weeks of fever that is unremitting. Allergies Allergy/AdvReac Type Severity Reaction Status Date / Time Penicillins Allergy Unknown UNKNOWN Verified 10/07/24 13:05 Sulfa (Sulfonamide Allergy Unknown UNKNOWN RXN Verified 10/07/24 13:05 Antibiotics) Home Medications Medication Instructions Recorded Confirmed Type desmopressin 0.1 mg tablet 0.1 mg PO HS 07/31/22 12/13/24 History omeprazole 20 mg capsule,delayed 20 mg PO DAILY 03/31/24 12/13/24 History release trazodone 50 mg tablet 50 mg PO QPM 03/31/24 12/13/24 History phenazopyridine 200 mg tablet 200 mg PO PC PRN pain 6 doses #6 12/13/24 Rx (Pyridium) tabs Past Med/Surg History Problem List Hematuria Fever Arthralgia Scattered fibroglandular tissue density of both breasts on mammography Plantar fasciitis Toe fracture Strain of latissimus dorsi muscle Foot pain At increased risk for malignant neoplasm of breast ADRI TRENT IS 20.9 Family history of malignant neoplasm of breast SISTER Plantar fasciitis of right foot Postmenopausal Factor V Leiden mutation H/O section Medical History Dense breast tissue FIBROGLANDULAR DENSITY History of hiatal hernia History of basal cell carcinoma Surgical History H/O knee surgery History of hysteroscopy ablation Status post left foot surgery Family History Mother Endometriosis Sister Endometriosis Breast cancer BRCA NEGATIVE Grandmother (Maternal) Hypertension Grandfather (Maternal) Bladder cancer Grandmother (Paternal) Pancreatic cancer Brother Colorectal cancer Aunt Pancreatic cancer PATERNAL Family/Other Colorectal cancer 2 paternal 1st degree cousins Denies family history of Ovarian cancer Prostate cancer Myocardial infarction Social History Smoking Status: Never smoker Do You Dip or Chew Tobacco: No; Preferred Language: French marital status: Current Living Situation: Family current occupational status: employed Feels Safe at Home: Yes Review of Systems Review of Systems: All systems reviewed & are unremarkable except as noted in HPI & below Physical Exam Physical Exam: In general she is awake and alert pleasant no distress. She does appear mildly ill. HEENT normocephalic atraumatic mucous membranes moist. Breathing unlabored and lungs are clear. Cardio is regular without rubs murmurs or gallops. Abdomen is soft nondistended nontender no masses or organomegaly. Extremities are without cyanosis clubbing or edema. Neuro shows cranial nerves II through XII to be grossly intact gross motor and sensory intact. No notable rashes. Labs and diagnostics noted. Results & Data Results & Data Vital Signs (Past 12 Hours) Vital Signs Temp Pulse Pulse Resp BP BP Pulse Ox 03/03/25 16:48 117 H 03/03/25 16:00 111 H 20 111/81 100 03/03/25 14:44 120 H 20 97 03/03/25 14:44 99.0 F 120 H 20 114/75 97 03/03/25 14:15 99.9 F H 138 H 20 111/73 99 O2 Del Method O2 Flow Rate 03/03/25 16:48 03/03/25 16:00 Nebulizer 7 03/03/25 14:44 Room Air 03/03/25 14:44 Room Air 03/03/25 14:15 Room Air Code Status & VTE Plan VTE Prophylaxis Plan VTE Prophylaxis will be ordered: Yes PG Care Time/CCT Total # of Minutes Spent Total Time Spent with Patient: Total time spent is greater than 50% in coordination of care (as documented) at patient's floor/unit and/or counseling patient: Coding Level of Care Code 73407 INT INP/OBS CARE 3/75MIN Diagnoses Fever R50.9 Hematuria R31.9
[2025-03-03] MEDS ORDERED: PHENAZOPYRIDINE HCL 200 MG TAB PO PRN (20:36)
[2025-03-03] MEDS ORDERED: MAGNESIUM HYDROXIDE SUSP 30 ML UDC PO PRN (20:36)
[2025-03-03] MEDS ORDERED: POLYETHYLENE (MIRALAX) 17 GM PACK PO PRN (20:36)
[2025-03-03] MEDS ORDERED: ALUMINUM/MAGNESIUM SUSP 30 ML UDC PO PRN (20:36)
[2025-03-03] MEDS: LACTATED RINGER'S 1,000 ML IV SCH (22:47)
[2025-03-03] MEDS: DESMOPRESSIN ACETATE 0.1 MG TAB PO SCH (23:46)
[2025-03-03] MEDS: ENOXAPARIN INJ 40 MG/0.4 ML SYR SQ SCH (23:46)
[2025-03-04] MEDS: DOXYCYCLINE HYCLATE 100 MG in DEXTROSE 5% MINI-B 100 ML IV SCH (06:37)
[2025-03-04 07:13] LABS: Hematocrit (blood only) 31.8 % (37.0-47.0); Hemoglobin 10.7 g/dl (12.0-16.0); Mean Corpuscular Hemoglobin 29.6 pg (25.0-34.0); Mean Corpuscular Volume 87.8 fL (80.0-100.0); Platelet Count 321 K/uL (130-400); RDW Standard Deviation 46.1 fL (36.4-46.3); Red Blood Count 3.62 M/uL (4.20-5.40); White Blood Count 5.63 K/ul (4.8-10.8)
[2025-03-04 07:28] LABS: Anion Gap 5.0 (3-11); Blood Urea Nitrogen 7.0 mg/dl (6-23); Calcium 8.6 mg/dl (8.6-10.3); Carbon Dioxide 23.0 mmol/L (21-32); Chloride 107.0 mmol/L (98-107); Creatinine Clr Calc Pharmacy 82.6 ml/min; Glucose 99.0 mg/dl (70-99(Fasting)); Potassium 3.9 mmol/L (3.5-5.1); Sodium 135.0 mmol/L (136-145)
[2025-03-04 07:34] LABS: Immature Granulocytes # (auto) 0.01 K/uL (0.01-0.20); Immature Granulocytes % (auto) 0.2 %; Polychromasia 1+
[2025-03-04] MEDS: ACETAMINOPHEN 325 MG TAB PO PRN (07:46)
[2025-03-04 15:55] LABS: EBV IgM Quant 83.5 U/mL (< 36.0); EBV Nuclear Antigen IgG Ab Positive; EBV Nuclear Antigen IgG Quant > 600.0 U/mL (< 18.0)
[2025-03-04 15:56] LABS: EBV Early Antigen IgG Ab Negative (Negative); EBV Early Antigen IgG Quant < 5.0 U/mL (< 9.0); EBV IgG Quant 638.0 U/mL (< 18.0)
--- NOTE | 2025-03-04 17:40 | Electrocardiogram Report ---
Test Reason : Blood Pressure : */* mmHG Vent. Rate : 123 BPM Atrial Rate : 123 BPM P-R Int : 132 ms QRS Dur : 82 ms QT Int : 314 ms P-R-T Axes : 57 40 47 degrees QTcB Int : 449 ms Sinus tachycardia Nonspecific ST abnormality Abnormal ECG Confirmed by Jose Kruger ([id number]) on 03/04/2025 5:40:15 PM Referred By: REFERRED SELF Confirmed By: Jose Kruger
[2025-03-04] MEDS: cefTRIAXone SODIUM 2,000 MG/50 ML BAG IV SCH (18:00)
--- NOTE | 2025-03-04 19:33 | Hospitalist Progress Note ---
Date of Service March 04, 2025 Assessment & Plan (1) Fever: (2) Hematuria: Plan #Fever - duration two weeks, headache, myalgias/arthralgias and malaise Admitting workup negative, no evidence of pneumonia, UTI, cellulitis, or C. difficile. Did not have URI symptoms and has been persistent two weeks, but overall is consistent with a viral syndrome. Unlikely bacterial meningitis since no immunocompromise, has not been severely ill, no meningeal signs and not toxic appearing. Viral meningitis is possible but seems unlikely. Presentation is fairly typical for tickborne illness though initial testing negative. Reviewed rheumatology notes from Dr. Porter and she has OA and bilateral hip bursitis - last steroid injection 3 mo ago. Does not have history of inflammatory Rheumatologic condition. No hx gout No fever since yesterday midday Continue doxycycline, ceftriaxone - stop ceftriaxone if blood cultures negative at 48h Follow up anaplasmosis / babesiosis DNA Ordered EBV (resulted c/w past infection), CMV pending, West Nile If she is still febrile after 48 hours, consider repeat tick testing, consider switching to BBC treatment, or consider revisiting workups for noninfectious causes of fever. #Hematuria here she has dipstick positive but 0-2 red cells, she notes whenever she was in [place] she had a urinalysis that was also positive for blood but not for infectionI suspect that is myoglobin from the body aches from the fever. #DVT prophylaxisLovenox continue home desmopressin, omeprazole, and trazodone. Admission and Anticipated Discharge Date Admission Date: March 03, 2025 Subjective Does feel somewhat better today, continues with headache, fever Did have an episode of neck stiffness last week while febrile but not now Has been back and forth to [place] Has had mosquito exposure, no known tick bites Sees Rheum, gets bilateral hip steroid injections but last was 3 months ago Physical Exam 2 Physical Exam: Last 24h vitals reviewed GEN: no acute distress, sitting in bed HEENT: pupils equal, sclerae anicteric, moist MM RESP: normal WOB, CTAB CV: reg no mrg ABD: soft/nt/nd +BT : no hernandez SKIN: warm and dry, no generalized rashes NEURO: AOx person, place, and situation. Face symmetric, speech normal, moves 4 ext spontaneously and equally No meningismus - good ROM side to side and flex/extension of neck without pain Results & Data Results & Data Vital Signs (Past 12 Hours) Vital Signs Temp Pulse Pulse Resp BP Pulse Ox O2 Del Method 03/04/25 15:20 37.1 C 72 16 110/73 94 Room Air 03/04/25 11:06 36.9 C 85 18 100/68 94 Room Air 03/04/25 07:25 37.1 C 83 17 115/70 94 Room Air Laboratory Results 03/04/25 06:48 03/04/25 06:48 Procal low 0.5-->0.4 EBV - past infection kandice/bab smears neg, DNA pending blood cultures ngtd PG Care Time/CCT Total # of Minutes Spent Total Time Spent with Patient: Total time spent is greater than 50% in coordination of care (as documented) at patient's floor/unit and/or counseling patient: Coding Level of Care Code 47077 SUB INP/OBS CARE 3/50MIN Diagnoses Fever R50.9 Fever type: unspecified Hematuria R31.9 (1) Fever Fever type: unspecified Qualified Code(s): R50.9 - Fever, unspecified
[2025-03-05] MEDS: ONDANSETRON INJ 2 MG/ML 2 ML VIAL IV PRN (05:49)
[2025-03-05] MEDS: PNEUMOCOCCAL VACCINE (PCV20) 20-VAL CONJ-DIP CRM/PF 0.5 ML SYR IM ONE (08:13)
--- NOTE | 2025-03-05 12:33 | Hospitalist Progress Note ---
Date of Service March 05, 2025 Assessment & Plan (1) Fever: (2) Hematuria: Plan #Fever - duration two weeks, headache, myalgias/arthralgias and malaise Admitting workup negative, no evidence of pneumonia, UTI, cellulitis, or C. difficile. Did not have URI symptoms and has been persistent two weeks, but overall is consistent with a viral syndrome. Unlikely bacterial meningitis since no immunocompromise, has not been severely ill, no meningeal signs and not toxic appearing. Viral meningitis is possible but seems unlikely. Presentation is fairly typical for tickborne illness though initial testing negative. Reviewed rheumatology notes from Dr. Porter and she has OA and bilateral hip bursitis - last steroid injection 3 mo ago. Does not have history of inflammatory Rheumatologic condition. No hx gout No fever since admission. Arthralgia/myalgia better or resolved but still with malaise and still with headache Continue doxycycline, ceftriaxone - stop ceftriaxone if blood cultures negative at 48h. reviewed NGTD Follow up anaplasmosis / babesiosis DNA Ordered EBV (resulted c/w past infection), CMV pending, West Nile Consider LP for possibility of viral meningitis - has headache but no meningeal signs so hold off for today -continue APAP, IV fluids, add toradol IV for headache -AM CBC diff, CMP and CRP -does not feel well enough for home, no fever but hasn't turned the corner #Hematuria here she has dipstick positive but 0-2 red cells, she notes whenever she was in [place] she had a urinalysis that was also positive for blood but not for infectionI suspect that is myoglobin from the body aches from the fever. #DVT prophylaxisLovenox continue home desmopressin, omeprazole, and trazodone. Admission and Anticipated Discharge Date Admission Date: March 03, 2025 Subjective Not having arthralgia/myalgia or fever today but has headache - head feels really full and swollen. Mild photophobia. Neck mildly sore moving it around No sinus or ear pain or congestion Nausea but no vomiting, diarrhea or abd pain Does not feel well, feels foggy like she has the flu Physical Exam Physical Exam: Last 24h vitals reviewed GEN: sitting in bed, looks like she does feel poorly HEENT: pupils equal, sclerae anicteric, moist MM RESP: normal WOB, CTAB CV: reg no mrg ABD: soft/nt/nd +BT : no hernandez SKIN: warm and dry, no rash No edema no inflamed joints, wwp NEURO: AOx person, place, and situation. Face symmetric, speech normal, moves 4 ext spontaneously and equally full ROM at neck without pain, supple, and can flex knee to chest without pain Results & Data Results & Data Vital Signs (Past 12 Hours) Vital Signs Temp Pulse Resp BP Pulse Ox O2 Del Method 03/05/25 08:09 36.7 C 78 18 109/72 93 Room Air 03/05/25 07:30 Room Air 03/05/25 05:45 36.7 C PG Care Time/CCT Total # of Minutes Spent Total Time Spent with Patient: Total time spent is greater than 50% in coordination of care (as documented) at patient's floor/unit and/or counseling patient: Coding Level of Care Code 43688 SUB INP/OBS CARE 2/35MIN Diagnoses Fever R50.9 Fever type: unspecified Hematuria R31.9 (1) Fever Fever type: unspecified Qualified Code(s): R50.9 - Fever, unspecified
[2025-03-05] MEDS: KETOROLAC 30 MG/ML VIAL IV ONE (12:54)
[2025-03-05] MEDS ORDERED: KETOROLAC TROMETHAMINE 15 MG/ML VIAL IV PRN (18:00)
[2025-03-06] VITALS: O2SAT 93
[2025-03-06 06:56] LABS: Hematocrit (blood only) 32.7 % (37.0-47.0); Hemoglobin 11.0 g/dl (12.0-16.0); Mean Corpuscular Hemoglobin 28.8 pg (25.0-34.0); Mean Corpuscular Volume 85.6 fL (80.0-100.0); Platelet Count 303 K/uL (130-400); RDW Standard Deviation 42.7 fL (36.4-46.3); Red Blood Count 3.82 M/uL (4.20-5.40); White Blood Count 5.97 K/ul (4.8-10.8)
[2025-03-06 07:44] LABS: Anion Gap 6.0 (3-11); Bilirubin,Total 0.4 mg/dl (0.2-1.0); Calcium 8.5 mg/dl (8.6-10.3); Carbon Dioxide 24.0 mmol/L (21-32); Chloride 99.0 mmol/L (98-107); Potassium 4.2 mmol/L (3.5-5.1); Sodium 129.0 mmol/L (136-145)
[2025-03-06 07:50] LABS: Alanine Aminotransferase 26.0 U/L (7-52); Albumin Globulin Ratio 1.3 (0.9-2); Alkaline Phosphatase 96.0 U/L (34-104); Blood Urea Nitrogen 10.0 mg/dl (6-23); Creatinine Clr Calc Pharmacy 104.7 ml/min; Globulin 2.6 gm/dl (2.5-4.0); Glucose 97.0 mg/dl (70-99(Fasting)); Total Protein 5.9 gm/dl (6.0-8.3)
[2025-03-06 07:59] VITALS: RESP 18; TEMP 98.6
[2025-03-06 08:02] LABS: ALC (manual) 4.12 K/uL (1.2-3.4); ANC (manual) 1.43 K/uL (1.4-6.5); Reactive Lymphocytes # (manual) 0.90 K/uL; Reactive Lymphocytes % (manual) 15 %
[2025-03-06] MEDS: SODIUM CHLORIDE 0.9% 1,000 ML IV SCH (10:58)
--- NOTE | 2025-03-06 12:37 | Discharge Summary ---
Discharge Summary Date of Service March 06, 2025 Principal Dx & Hospital Course #1 = Principal Diagnosis (1) Fever: (2) Hematuria: Plan #Febrile synrome - duration two weeks by time of admission, headache, myalgias/arthralgias and malaise Admitting workup negative, no evidence of pneumonia, UTI, cellulitis, or C. difficile. Did not have URI symptoms and has been persistent two weeks, but overall is consistent with a viral syndrome. Unlikely bacterial meningitis since no immunocompromise, has not been severely ill, no meningeal signs and not toxic appearing. Viral meningitis is possible but seems unlikely. Presentation is fairly typical for tickborne illness though initial testing negative. Reviewed rheumatology notes from Dr. Porter and she has OA and bilateral hip bursitis - last steroid injection 3 mo ago. Does not have history of inflammatory Rheumatologic condition. No hx gout Ordered EBV (resulted c/w past infection), CMV pending, West Nile pending. Lyme negative, kandice/bab smears negative but PCR's pending. Blood cultures NGTD Treated with ceftriaxone, doxycycline in hospital No fever during this admission Myalgias/arthralgias resolved, headache persisted through 03/05 now resolved, oral intake normalized, slight brain fog Home and complete 10-14 day course of doxycycline. -discussed return precautions #Hyponatremia - worsened a little on IV fluids 135-->129 today. Seems to be asymptomatic. She is on HS desmopressin. No longer needs IV fluids. Advised fluids intake to thirst (dont push them) and liberal salt intake this week. Highly likely this will normalize/autocorrect. -recommend BMP upon primary care follow up -discussed S/Sx hyponatremia #Hematuria here she has dipstick positive but 0-2 red cells, she notes whenever she was in [place] she had a urinalysis that was also positive for blood but not for infectionI suspect that is myoglobin from the body aches from the fever. -repeat UA with primary care continue home desmopressin, omeprazole, and trazodone. Admission HPI Per Admitting Provider patient is a very pleasant 65-year-old female who presents with fever. She notes her fever for started on February 18. Has basically been daily. She does not really have any other focal symptoms (except for a dry cough that is really mildly annoying at worst and she does not really correlate together with the fevers). She has no shortness of breath, she has no abdominal pain/diarrhea, she has no dysuria. She has no upper respiratory symptoms. She notes that she had a few days where she did not have a feverbut then whenever she thinks about it, she also wonders if she still did but because she was not feeling as bad for those few days, she did not take her temperature. Essentially she presents with about 2 weeks of fever that is unremitting. Discharge Exam Last 24h vitals reviewed GEN: sitting in bed, looks like she does feel poorly HEENT: pupils equal, sclerae anicteric, moist MM RESP: normal WOB, CTAB CV: reg no mrg ABD: soft/nt/nd +BT : no hernandez SKIN: warm and dry, no rash No edema no inflamed joints, wwp NEURO: AOx person, place, and situation. Face symmetric, speech normal, moves 4 ext spontaneously and equally full ROM at neck without pain, supple, and can flex knee to chest without pain Discharge Plan Discharge Items Patient Disposition: Home - Self-Care Reason For Visit: FUO Discharge Diagnosis: Fever, possible tickborne infection or viral syndrome Condition on Discharge: Good Activity: Resume your previous activity Non-emergency contact: Primary Care Provider Call non-emergency contact if: you have any medication questions and your symptoms worsen Follow-up/Referrals: Maria Guadalupe Holland [Primary Care Provider] - Diet: Regular Addtl Attending Provider Instructions: You were evaluated for fever and associated symptoms - myalgias, malaise, headache, brain fog etc Fortunately, no fevers for 72h and you're feeling better We are still not sure what caused it and there are a few tests not resulted. I feel confident its not a standard bacterial infection (things like pneumonia, UTI etc). It is possible that you have a tick-borne illness. Lyme screen was negative, anaplasmosis and babesiosis smears were negative but DNA tests are pending Recommend completing 10-14 days of doxycycline. Babesiosis is less likely, but is not treated by doxycycline so we'll need to contact you for specific treatment if we find it. Its likely that this was a prolonged viral illness. Tests for the usual respiratory viruses were negative, you have evidence of prior EBV (mono) infection, CMV and West Nile test are pending - there is no specific treatment for these. You may still have a few fevers over the next week or so, but they should be getting less frequent and lower and your overall health should be trending better. Seek medical attention if things are going the wrong way. Your blood sodium is a little low - best thing to do is drink a normal amount of fluids and eat extra salt for the next 5-7 days You had microscopic blood in your urine that was probably related to the illness above When you follow up in primary care - have your blood sodium rechecked and a repeat urinalysis to make sure these problems resolve It was a pleasure taking care of you in the hospital, Carrol Ortega MD Pending Studies at Discharge: Yes Stand-Alone Forms: My [facility] [employer], Smoking Cessation Medications and DC Order Prescriptions: New doxycycline hyclate 100 mg capsule 100 mg PO BID Qty: 23 0RF Continued desmopressin 0.1 mg tablet 0.1 mg PO HS trazodone 50 mg tablet 50 mg PO QPM omeprazole 20 mg capsule,delayed release(DR/EC) 20 mg PO DAILY Discharge Orders: Discharge Order (Routine); Ordered 03/06/25 Ordered By: Carrol Ortega Admission Data Admit Date/Time: 03/03/25 17:54 Attending Provider: Carrol Ortega Admit Provider: Dcelan Asencio Primary Care Provider: Maria Guadalupe Holland Other Providers: Declan Asencio Other Interventions: Discharge Summary Assessment (RN) Last Done: 03/06/25 13:30 Hospital Stay Data Consultations 03/03/25 17:31 ED Decision to Admit Stat Diagnostic Imagining Performed 03/03/25 14:43 CT abd pelvis IV con only Stat CT angio chest PE protocol Stat CT head/brain wo con Stat Abdomen/Pelvis CT 03/03/25 14:43 Technique: Axial computed tomography images were obtained of the abdomen and pelvis after the administration of intravenous contrast. Comparison is made to the prior CT dated 03/31/2024 Findings: The liver is overall of normal size, attenuation, and contour with no sign of cirrhosis or significant fatty infiltration. No liver mass lesion is seen. The portal vein is patent. The gallbladder appears unremarkable. No bile duct dilatation is noted. The spleen is of normal size. No focal splenic lesion is evident. The pancreas appears normal with no sign of acute or chronic pancreatitis and no mass lesion noted. The pancreatic duct is of normal caliber. The adrenal glands appear unremarkable. No definite renal or proximal ureteral calculi are seen on this contrast-enhanced study. There is no hydronephrosis or perinephric stranding. No renal mass lesion is identified. The aorta is of normal caliber. No abdominal adenopathy is seen. The stomach appears normal. There is no sign of small bowel obstruction. There is suspected mild small bowel wall thickening. The colon appears unremarkable. The appendix appears normal also. No free intraperitoneal fluid or air is identified. No distal ureteral or bladder calculi are seen. No bladder mass lesion is evident. The iliac arteries are of normal caliber. No pelvic adenopathy is noted. There is a 2.2 cm left ovarian cyst The lungs bases appear clear. No fracture is identified. No focal osseous lesion is seen Impression: 1. Suspected mild small bowel wall thickening, which may be due to infectious enteritis or inflammatory bowel disease 2. Left ovarian cyst, likely a benign functional cyst Electronically signed by Per Mireles 03-03-2025 5:05 PM Chest CTA 03/03/25 14:43 Clinical history: Headache and fever Technique: Axial computed tomography images were obtained of the chest after the administration of intravenous contrast according to the CT angiogram protocol Comparison is made to the prior CT dated 11/02/2020 Findings: There is no definite sign of pulmonary embolism. There is bilateral lower lobe and right middle lobe atelectasis. There is a small calcified granuloma in the right upper lobe. There is mild emphysema. There is no pleural effusion or pneumothorax. There is no sign of pulmonary fibrosis or other diffuse interstitial process. No endobronchial lesion is seen There is no mediastinal, hilar, or axillary adenopathy. The thoracic aorta appears unremarkable with no sign of aneurysm or dissection. There is no pericardial effusion The visualized upper abdomen appears unremarkable. No fracture is seen. No focal osseous lesion is evident Impression: 1. No definite sign of pulmonary embolism 2. Bilateral lung base atelectasis 3. Mild emphysema Electronically signed by Per Mireles 03-03-2025 5:[address] 03/03/25 14:43 Clinical History: Headache and fever. Technique: Axial computed tomography images were obtained of the brain from the vertex to the skull base without intravenous contrast. Findings: There is no sign of intracranial hemorrhage. There is normal small-white matter differentiation with no sign of acute or old infarction. No midline shift or other form of herniation is identified. There is no hydrocephalus. No obvious mass lesion is seen on this noncontrast examination. The visualized portions of the orbits and paranasal sinuses appear unremarkable. The mastoid air cells appear clear Impression: Unremarkable noncontrast CT of the brain Electronically signed by Per Mireles 03-03-2025 4:57 PM 03/06/25 Range/Units 06:32 WBC 5.97 (4.8-10.8) K/ul RBC 3.82 L (4.20-5.40) M/uL Hgb 11.0 L (12.0-16.0) g/dl Hct 32.7 L (37.0-47.0) % MCV 85.6 (80.0-100.0) fL MCH 28.8 (25.0-34.0) pg MCHC 33.6 (32.0-36.0) g/dL RDW Std Deviation 42.7 (36.4-46.3) fL RDW Coeff of Kevin 13.6 (11.5-14.5) % Plt Count 303 (130-400) K/uL MPV 8.9 L (9.4-12.4) fL Neutrophils % (Manual) 24 % Lymphocytes % (Manual) 54 % Reactive Lymphs % (Man) 15 % Monocytes % (Manual) 4 % Eosinophils % (Manual) 3 % Neutrophils # (Manual) 1.43 (1.40-6.50) K/uL Total Absolute Neuts 1.43 (1.4-6.5) K/uL Lymphocytes # (Manual) 3.22 (1.2-3.4) K/uL Reactive Lymphs # 0.90 K/uL Total Abs Lymphocytes 4.12 H (1.2-3.4) K/uL Monocytes # (Manual) 0.24 (0.11-0.59) K/uL Eosinophils # (Manual) 0.18 (0-0.50) K/uL Sodium 129 L (136-145) mmol/L Potassium 4.2 (3.5-5.1) mmol/L Chloride 99 (98-107) mmol/L Carbon Dioxide 24 (21-32) mmol/L Anion Gap 6 (3-11) BUN 10 (6-23) mg/dl Creatinine 0.56 L (0.6-1.2) mg/dl Est Cr Clr Drug Dosing 104.7 ml/min eGFR 101.22 BUN/Creatinine Ratio 17.9 (10-20) Glucose 97 (70-99(Fasting)) mg/dl Calcium 8.5 L (8.6-10.3) mg/dl Total Bilirubin 0.4 (0.2-1.0) mg/dl AST 23 (13-39) U/L ALT 26 (7-52) U/L Alkaline Phosphatase 96 (34-104) U/L C-Reactive Protein 1.37 H (0-0.5) mg/dl Total Protein 5.9 L (6.0-8.3) gm/dl Albumin 3.3 L (3.4-5.0) gm/dl Globulin 2.6 (2.5-4.0) gm/dl Albumin/Globulin Ratio 1.3 (0.9-2) Pending Results Patient Have Any Pending Studies at Discharge: Yes Discharge Instructions Given to Patient (Per Discharging Provider) You were evaluated for fever and associated symptoms - myalgias, malaise, headache, brain fog etc Fortunately, no fevers for 72h and you're feeling better We are still not sure what caused it and there are a few tests not resulted. I feel confident its not a standard bacterial infection (things like pneumonia, UTI etc). It is possible that you have a tick-borne illness. Lyme screen was negative, anaplasmosis and babesiosis smears were negative but DNA tests are pending Recommend completing 10-14 days of doxycycline. Babesiosis is less likely, but is not treated by doxycycline so we'll need to contact you for specific treatment if we find it. Its likely that this was a prolonged viral illness. Tests for the usual respiratory viruses were negative, you have evidence of prior EBV (mono) infection, CMV and West Nile test are pending - there is no specific treatment for these. You may still have a few fevers over the next week or so, but they should be getting less frequent and lower and your overall health should be trending better. Seek medical attention if things are going the wrong way. Your blood sodium is a little low - best thing to do is drink a normal amount of fluids and eat extra salt for the next 5-7 days You had microscopic blood in your urine that was probably related to the illness above When you follow up in primary care - have your blood sodium rechecked and a repeat urinalysis to make sure these problems resolve It was a pleasure taking care of you in the hospital, Carrol Ortega MD Total Time Total Time Spent Total Time Spent (In Minutes): <30 Coding Level of Care Code 05133 IN/OBS DISCH 30 MIN/LESS Diagnoses Fever R50.9 Fever type: unspecified Hematuria R31.9
[2025-03-06 13:31] VITALS: BP 100/66; PULSE 85
== END 2025-03-06 13:45 | disposition home or self-care (01) | DRG 866 ==
LOC: ED 14:14 → SUATTDRO 17:54 → EDINP 17:54 → 3N 20:37